=== PATIENT | male | born 1955 | race Caucasian/White ===

== ENCOUNTER 2019-12-27 11:36 | Emergency (ER) | payer OTHER ==
[~2019-12-27] VITALS: Ht 185.4 cm; Wt 99.8 kg
[2019-12-27] MEDS ORDERED: AMIT50 PO (11:54)
[2019-12-27] MEDS ORDERED: Amoxicillin500 MG PO ×2 (12:42→12:47)
== END 2019-12-27 12:44 | disposition home or self-care (01) ==
LOC: ER 11:36
DX: K04.7 Periapical abscess without sinus (principal); L03.211 Cellulitis of face; F17.200 Nicotine dependence, unspecified, uncomplicated; Z79.899 Other long term (current) drug therapy
CPT/HCPCS: 99282

== ENCOUNTER 2024-10-22 23:56 | Emergency (ER) | payer OTHER ==
[~2024-10-22] VITALS: Ht 185.4 cm; Wt 95.2 kg
[~2024-10-22 23:56] MED LIST: AMIT50 PO; Amoxicillin500 MG PO
[2024-10-23 01:15] VITALS: BP 132/92
== END 2024-10-23 05:21 | disposition left against medical advice (07) ==
LOC: ER 23:56
DX: Z03.823 Encounter for observation for suspected inserted (injected) foreign body ruled out (principal); F17.200 Nicotine dependence, unspecified, uncomplicated; K21.9 Gastro-esophageal reflux disease without esophagitis; Z79.899 Other long term (current) drug therapy
CPT/HCPCS: 74019; 74176; 99283-25

== ENCOUNTER 2024-10-31 19:20 | Emergency (ER) | payer OTHER ==
[~2024-10-31] VITALS: Ht 185.4 cm; Wt 95.2 kg
[2024-10-31 20:30] VITALS: BP 124/75
== END 2024-10-31 20:40 | disposition home or self-care (01) ==
LOC: ER 19:20
DX: F15.10 Other stimulant abuse, uncomplicated (principal); K21.9 Gastro-esophageal reflux disease without esophagitis; F17.200 Nicotine dependence, unspecified, uncomplicated; Z79.899 Other long term (current) drug therapy
CPT/HCPCS: 99284